=== PATIENT | male | born 1950 | race Caucasian/White ===

== ENCOUNTER 2016-07-18 12:51 | Emergency (ER) | payer MEDICARE, OTHER ==
[~2016-07-18] VITALS: Ht 185.4 cm; Wt 119.6 kg
[2016-07-18 12:55] VITALS: BP 130/92; PULSE 84; RESP 16; TEMP 97.9; O2SAT 96
[2016-07-18] MEDS ORDERED: ATOR20TA15 PO (13:28)
[2016-07-18] MEDS ORDERED: VALS160T6 PO (13:28)
[2016-07-18] MEDS ORDERED: NIFE30TA61 PO (13:28)
[2016-07-18] MEDS ORDERED: WARF-22 PO (13:28)
--- NOTE | 2016-07-18 13:28 | PD ---
HPI Chief Complaint: Injury Time Seen by Provider: 13:28 Travel History International Travel<30 days: No Contact w/Intl Traveler<30days: No Traveled to known affect area: No History of Present Illness HPI 66-year-old male coming in with several day history of right medial knee pain and stiffness. Patient states history of similar symptoms in the left knee requiring arthroscopic surgery for arthritis and cartilage issues. Patient states he didn't have any pain until several days ago when he got up and moved just right twisting his right knee with sudden onset pain. Patient states the pain is gotten progressively more consistent and worse with ambulation. Patient describes the pain as a burning aching pain. Patient denies significant swelling or effusion. Pain and worse is a 6/10. Patient denies locking or giving out of the knee. Patient is on Coumadin until he has not been taking Naprosyn or ibuprofen. He has no known drug allergies. PFSH Past Medical History Hx Anticoagulant Therapy: Yes (coumadin) Cardiovascular Problems: Yes (htn on meds) Social History Alcohol Use: Yes Tobacco Use: No Substance Use: No Allergies-Medications (Allergen,Severity, Reaction): Coded Allergies: No Known Allergies (Unverified , 07/18/16) Reported Meds & Prescriptions Reported Meds & Active Scripts Active Prednisone 20 Mg Tab 20 Mg PO BID Acetaminophen Extra Strength (Acetaminophen) 500 Mg Cap 1,000 Mg PO Q6H PRN Reported Nifedipine ER 24 HR (Nifedipine) 30 Mg Tab 30 Mg PO DAILY Atorvastatin (Atorvastatin Calcium) 20 Mg Tab 20 Mg PO DAILY Valsartan-Hydrochlorothiazide 160-25 Mg Tab 1 Tab PO DAILY Warfarin 10 Mg Tab 10 Mg PO DAILY Review of Systems Except as stated in HPI: all other systems reviewed are Neg General / Constitutional: No: Fever Eyes: No: Visual changes HENT: No: Headaches Cardiovascular: No: Chest Pain or Discomfort Respiratory: No: Shortness of Breath Gastrointestinal: No: Abdominal Pain Genitourinary: No: Dysuria Musculoskeletal: Positive: Arthralgias, Limited ROM, Pain (see history present illness.) Skin: No Rash Neurologic: No: Weakness Psychiatric: No: Depression Endocrine: No: Polydipsia Hematologic/Lymphatic: No: Easy Bruising Physical Exam Narrative GENERAL: Patient appears in no acute distress. SKIN: Warm and dry. Normal color. Normal turgor. No rash. HEAD: Atraumatic. Normocephalic. EYES: Pupils equal and round. No scleral icterus. No injection or drainage. ENT: No nasal bleeding or discharge. Mucous membranes pink and moist. NECK: Trachea midline. Supple nontender. CARDIOVASCULAR: Regular rate and rhythm. RESPIRATORY: No accessory muscle use. GASTROINTESTINAL: Abdomen soft, non-tender, nondistended. Hepatic and splenic margins not palpable. MUSCULOSKELETAL: Extremities without clubbing, cyanosis, or edema. No obvious deformities. Right knee appears normal without significant effusion. There is operable warmth and tenderness along the medial joint line. Patient has discomfort with flexion as well as with varus and valgus stress. There is some mild laxity along the medial joint line with valgus stress. Charmaine test is not significantly positive. Drawer test is negative. NEUROLOGICAL: Awake and alert. No obvious cranial nerve deficits. Motor grossly within normal limits. Five out of 5 muscle strength in the arms and legs. Normal speech. PSYCHIATRIC: Appropriate mood and affect; insight and judgment normal. Data Data Last Documented VS Vital Signs Date Time Temp Pulse Resp B/P Pulse Ox O2 Delivery O2 Flow Rate FiO2 07/18/16 12:55 97.9 84 16 130/92 96 Orders Knee, Complete (4vws) (07/18/16 13:35) Prednisone (Deltasone) (07/18/16 13:45) MDM Medical Decision Making Medical Screen Exam Complete: Yes Emergency Medical Condition: Yes Differential Diagnosis Right knee pain. Arthralgia. Internal derangement. Arthritis. Narrative Course Patient is medically stable at time of exam. X-ray of the right knee is ordered. Patient is given prednisone 60 mg by mouth. X-ray shows significant arthritic changes with mild effusion per radiologist. Patient is discharged home with prescription for prednisone 20 mg twice a day 7 days. Patient can take extra strength Tylenol 2 tabs every 6 hours when necessary pain as well. Patient should follow-up with Dr. Jon as discussed. Patient can return to emergency Department with worsening symptoms as needed. Diagnosis Primary Impression: Right knee pain Qualified Code: M25.561 - Acute pain of right knee Referrals: Homar Jon MD ([facility]) call for appointment Patient Instructions: General Instructions, Knee Pain (ED) Additional Instructions: Patient is given prednisone 60 mg by mouth. X-ray shows significant arthritic changes with mild effusion per radiologist. Patient is discharged home with prescription for prednisone 20 mg twice a day 7 days. Patient can take extra strength Tylenol 2 tabs every 6 hours when necessary pain as well. Patient should follow-up with Dr. Jon as discussed. Patient can return to emergency Department with worsening symptoms as needed. Med/Other Pt SpecificInfo: Prescription(s) given Scripts Prednisone 20 Mg Tab20 Mg PO BID #14 TAB Prov:Marisela Juarez MD 07/18/16 Acetaminophen (Acetaminophen Extra Strength)500 Mg Cap1,000 Mg PO Q6H PRN (PAIN SCALE 4 TO 10) #60 CAP Ref 1 Prov:Marisela Juarez MD 07/18/16 Disposition: 01 DISCHARGE HOME Condition: Stable Ras Hernandez Jul 18, 2016 13:28
[2016-07-18] MEDS ORDERED: predniSONE 20 MG TAB PO ONE (13:45)
[2016-07-18] MEDS ORDERED: PRED20 PO (14:24)
[2016-07-18] MEDS ORDERED: EXTR500C PO (14:24)
--- NOTE | 2016-07-18 14:34 | RADHPO ---
EXAM DATE/TIME: 07/18/2016 13:43 [facility] COMPARISON: No previous studies available for comparison. INDICATIONS : Right knee pain, no known injury. MEDICAL HISTORY : None. SURGICAL HISTORY : None. ENCOUNTER: Initial ACUITY: 1 week PAIN SCORE: 6/10 LOCATION: Right knee FINDINGS: Four view examination of the right knee demonstrates no evidence of fracture or dislocation. Mild os teoarthritis. Bony mineralization is normal. The articular surfaces are intact. The suprapatellar s oft tissues have a normal configuration. CONCLUSION: Osteoarthritis without fracture. Ho Rodriges MD on July 18, 2016 at 14:30 Board Certified Radiologist. This report was verified electronically.
== END 2016-07-18 14:33 | disposition home or self-care (01) ==
LOC: PHEFT 12:51
DX: M25.561 Pain in right knee (principal)
CPT/HCPCS: 73564; 99283; J7512